=== PATIENT | female | born 1975 | race Caucasian/White ===

== ENCOUNTER 2024-01-16 13:47 | Outpatient (CLI) | payer OTHER | END 2024-01-16 13:48 | disposition home or self-care (01) | LOC: CSHMAMMO 13:47 | PROVIDERS: ATTEND Family Medicine | DX: Z12.31 Encounter for screening mammogram for malignant neoplasm of breast (principal); Z80.3 Family history of malignant neoplasm of breast | CPT/HCPCS: 77063; 77067 ==